=== PATIENT | female | born 1965 | race Caucasian/White ===

== ENCOUNTER 2021-04-07 00:47 | Emergency (ER) | payer OTHER ==
[~2021-04-07] VITALS: Ht 167.6 cm; Wt 46.7 kg
--- NOTE | 2021-04-07 01:09 | PHYS DOC ---
Adult General HPI HPI Patient is a otherwise healthy 55-year-old female who presents with a chief complaint of bee sting. States that she had a honeybee sting her on the top of her head at about 6 PM this evening and shortly after started to have some swelling around her right eye. States she has been stung before by her honeybees and had a similar reaction a month or 2 ago and it stung her on the hand and arm as well but went away. Denies headache, changes in vision, pain or trouble swallowing, swollen lips or tongue, chest pain, shortness of breath, wheezing, abdominal pain, nausea, vomiting or diarrhea. Denies any lightheadedness or syncope. Review of Systems Review of Systems Review of systems otherwise unremarkable except noted in HPI Physical Exam Physical Exam Constitutional: Well developed, well nourished, no acute distress, non-toxic appearance. [] HENT: Normocephalic, atraumatic, bilateral external ears normal, oropharynx moist, no oral exudates, nose normal. [] Eyes: , conjunctiva normal, no discharge, mild right sided periorbital swelling with mild erythema, normal vision. [] Neck: Normal range of motion, no tenderness, supple, no stridor. [] Cardiovascular: Sinus tachycardia [] Lungs & Thorax: Bilateral breath sounds clear to auscultation [] Abdomen: soft, no tenderness, no masses, no pulsatile masses. [] Skin: Warm, dry, no erythema, no rash. [] Extremities: No tenderness, ROM intact, no edema. [] Neurologic: Alert and oriented X 3, no focal deficits noted. [] Psychologic: Affect normal, mood normal. [] EKG EKG [] Radiology/Procedures Radiology/Procedures [] Heart Score C/O Chest Pain: No Risk Factors: Risk Factors: DM, Current or recent (<one month) smoker, HTN, HLP, family history of CAD, obesity. Risk Scores: Risk Factors: DM, Current or recent (<one month) smoker, HTN, HLP, family history of CAD, obesity. Course & Med Decision Making Course & Med Decision Making Patient is a 55-year-old female who presents after a bee sting with a swollen right eye Also notable for sinus tachycardia. Physical exam noted above. Patient given steroids and Benadryl. Patient with only swelling around the right eye and no other findings of anaphylaxis. After some observation in the emergency department patient stated she was fee ling safe to go home with no new or concerning symptoms. Discussed findings with family and advised to probably stay away from her honeybees unless she is really protected. Advised to follow-up with primary care physician to have discussions about allergy testing. Gave return precautions to the ED. Patient grateful, verbalized understanding and agrees with plan of discharge. [] Dragon Disclaimer Dragon Disclaimer This electronic medical record was generated, in whole or in part, using a voice recognition dictation system. Departure Departure: Impression: Primary Impression: Bee sting Disposition: 01 HOME / SELF CARE / HOMELESS Condition: GOOD Referrals: HEATHER SUGGS DO (PCP) Patient Instructions: Bee, Wasp, or Hornet Sting Additional Instructions: Thank you for coming into the emergency department tonight and allowing us to take care of you. Please read the attached information carefully to go back over some of the things we discussed. Would be advisable to keep protected from your honeybees if you are managing them as to not get stuck anymore as you are beginning to have a reaction. Please follow-up with your primary care physician as soon as you can update on ED visit and set up a follow-up and discuss need for allergy testing. Please come back to the ED with new or concerning symptoms as discussed. JOYA DEL REAL MD Apr 07, 2021 01:09
[2021-04-07] MEDS ORDERED: tylenol (01:14)
[2021-04-07] MEDS ORDERED: DEXAMETHASONE SOD PHOS 10 MG/ML VIAL. IM ONE (01:15)
[2021-04-07] MEDS ORDERED: diphenhydrAMINE HCL 25 MG CAPSULE PO ONE (01:15)
[2021-04-07 01:49] VITALS: BP 131/86
== END 2021-04-07 02:06 | disposition home or self-care (01) ==
LOC: ER 00:47
DX: T63.441A Toxic effect of venom of bees, accidental (unintentional), initial encounter (principal); Y92.89 Other specified places as the place of occurrence of the external cause; Z59.0 Homelessness
CPT/HCPCS: 96372; 99283; J1100; Q0163